=== PATIENT | female | born 1985 | race Caucasian/White ===

== ENCOUNTER 2017-12-22 14:51 | Inpatient (IN) | payer OTHER ==
[2017-12-22] MEDS: DEXTROSE 5%-0.45% NACL 1,000 ML IV (16:11)
[2017-12-22] MEDS ORDERED: ALBUTEROL/IPRATROPIUM (NEB) 3 ML AMP HHN (16:30)
[2017-12-22] MEDS ORDERED: MAGNESIUM HYDROXIDE 30ML CUP PO (16:30)
[2017-12-22] MEDS ORDERED: NACL 0.9% 3 ML SYG IV (16:30)
[2017-12-22] MEDS ORDERED: ACETAMINOPHEN 325 MG TAB PO (16:30)
[2017-12-22] MEDS: morphine 2 MG INJ IV (17:38)
[2017-12-22] MEDS: HYDROCODONE/APAP (5/325) TAB PO (19:52)
[2017-12-23] MEDS: DEXTROSE 5%-0.45% NACL 1,000 ML IV ×3 (02:22→21:12)
[2017-12-23] MEDS: morphine 2 MG INJ IV ×3 (03:20→12:34)
[2017-12-23 06:24] LABS: ADD MAN DIFF? NO
[2017-12-23 06:34] LABS: WHITE BLOOD COUNT 11.3 10^3/ul (4.8-10.8)
[2017-12-23 06:34] LABS: BASOPHILS % 0.3 % (0.0-2.0); EOSINOPHILS # 0.2 10^3/ul (0.0-0.5); EOSINOPHILS % 1.5 % (0.0-7.0); HEMATOCRIT 32.3 % (37.0-47.0); HEMOGLOBIN 10.4 g/dl (12.0-16.0); LYMPHOCYTES # 1.9 10^3/ul (0.8-2.9); MEAN CORPUSCULAR HGB CONC 32.2 g/dl (32.0-37.0); MEAN PLATELET VOLUME 9.2 fl (7.4-10.4); MONOCYTE # 1.1 10^3/ul (0.3-0.9); MONOCYTES % 9.6 % (0.0-11.0); NEUTROPHILS % 71.1 % (39.0-77.0); PLATELET COUNT 360 10^3/UL (140-415); RED BLOOD COUNT 3.59 10^6/ul (4.20-5.40); RED CELL DISTRIBUTION WIDTH 14.5 % (11.5-14.5)
[2017-12-23 07:11] LABS: ALANINE AMINOTRANSFERASE 27 IU/L (13-69); ALBUMIN 3.6 g/dl (3.3-4.9); ALBUMIN/GLOBULIN RATIO 1.16; ALKALINE PHOSPHATASE 68 IU/L (42-121); ANION GAP 15 (8-16); ASPARTATE AMINO TRANSFERASE 20 IU/L (15-46); BILIRUBIN,INDIRECT 0.2 mg/dl (0-1.1); BILIRUBIN,TOTAL 0.2 mg/dl (0.2-1.3); BLOOD UREA NITROGEN 7 mg/dl (7-20); CALCIUM 8.8 mg/dl (8.4-10.2); CARBON DIOXIDE 26 mmol/L (21-31); CHLORIDE 102 mmol/L (97-110); CREATININE 0.61 mg/dl (0.44-1.00); GLUCOSE 114 mg/dl (70-220); MAGNESIUM 1.8 mg/dl (1.7-2.5); POTASSIUM 4.1 mmol/L (3.5-5.1); SODIUM 139 mmol/L (135-144); TOTAL PROTEIN 6.7 g/dl (6.1-8.1)
[2017-12-23] MEDS: LORAZEPAM 0.5 MG TAB PO (09:40)
[2017-12-23 15:39] LABS: BARBITURATES Negative (NEGATIVE); BENZODIAZEPINES Negative (NEGATIVE); CANNABINOIDS Positive (NEGATIVE); COCAINE Negative (NEGATIVE)
[2017-12-23 15:47] LABS: AMPHETAMINE/METHAMPHETAMINE Positive (NEGATIVE); OPIATES Positive (NEGATIVE)
[2017-12-23] MEDS: HYDROCODONE/APAP (5/325) TAB PO (16:06)
[2017-12-23] MEDS: morphine LIQ (10 MG/5 ML) CUP PO (19:41)
[2017-12-24] MEDS: morphine LIQ (10 MG/5 ML) CUP PO ×3 (00:07→21:25)
[2017-12-24] MEDS: LORAZEPAM 0.5 MG TAB PO (00:29)
[2017-12-24] MEDS: HYDROCODONE/APAP (5/325) TAB PO ×3 (01:35→18:16)
[2017-12-24 06:23] LABS: ADD MAN DIFF? NO
[2017-12-24 06:32] LABS: WHITE BLOOD COUNT 13.3 10^3/ul (4.8-10.8)
[2017-12-24 06:32] LABS: BASOPHIL # 0.1 10^3/ul (0.0-0.1); BASOPHILS % 0.5 % (0.0-2.0); EOSINOPHILS # 0.3 10^3/ul (0.0-0.5); HEMATOCRIT 33.9 % (37.0-47.0); HEMOGLOBIN 10.8 g/dl (12.0-16.0); LYMPHOCYTES # 2.7 10^3/ul (0.8-2.9); LYMPHOCYTES % 20.2 % (15.0-51.0); MEAN CORPUSCULAR HEMOGLOBIN 28.2 pg (29.0-33.0); MEAN CORPUSCULAR HGB CONC 31.9 g/dl (32.0-37.0); MEAN CORPUSCULAR VOLUME 88.5 fl (82.0-101.0); MONOCYTE # 1.2 10^3/ul (0.3-0.9); MONOCYTES % 8.9 % (0.0-11.0); NEUTROPHILS % 67.8 % (39.0-77.0); PLATELET COUNT 405 10^3/UL (140-415); RED BLOOD COUNT 3.83 10^6/ul (4.20-5.40); RED CELL DISTRIBUTION WIDTH 14.6 % (11.5-14.5)
[2017-12-24 07:00] LABS: ANION GAP 13 (8-16); BLOOD UREA NITROGEN 9 mg/dl (7-20); CALCIUM 9.1 mg/dl (8.4-10.2); CARBON DIOXIDE 26 mmol/L (21-31); CHLORIDE 103 mmol/L (97-110); CREATININE 0.53 mg/dl (0.44-1.00); GLUCOSE 110 mg/dl (70-220); MAGNESIUM 1.9 mg/dl (1.7-2.5); PHOSPHORUS 3.8 mg/dl (2.5-4.9); POTASSIUM 4.2 mmol/L (3.5-5.1); SODIUM 138 mmol/L (135-144)
[2017-12-24] MEDS: DEXTROSE 5%-0.45% NACL 1,000 ML IV ×2 (08:11→18:11)
[2017-12-25] MEDS: DEXTROSE 5%-0.45% NACL 1,000 ML IV ×3 (00:46→11:49)
[2017-12-25] MEDS: morphine 2 MG INJ IV ×4 (01:19→13:57)
[2017-12-25 06:49] LABS: ADD MAN DIFF? NO
[2017-12-25 06:52] LABS: BASOPHIL # 0.1 10^3/ul (0.0-0.1); BASOPHILS % 0.4 % (0.0-2.0); EOSINOPHILS # 0.3 10^3/ul (0.0-0.5); EOSINOPHILS % 2.7 % (0.0-7.0); HEMATOCRIT 32.6 % (37.0-47.0); HEMOGLOBIN 10.3 g/dl (12.0-16.0); LYMPHOCYTES # 2.3 10^3/ul (0.8-2.9); LYMPHOCYTES % 19.9 % (15.0-51.0); MEAN CORPUSCULAR HEMOGLOBIN 28.2 pg (29.0-33.0); MEAN CORPUSCULAR HGB CONC 31.6 g/dl (32.0-37.0); MEAN CORPUSCULAR VOLUME 89.3 fl (82.0-101.0); MEAN PLATELET VOLUME 8.6 fl (7.4-10.4); MONOCYTES % 8.8 % (0.0-11.0); NEUTROPHIL # 7.9 10^3/ul (1.6-7.5); NEUTROPHILS % 67.6 % (39.0-77.0); PLATELET COUNT 397 10^3/UL (140-415); RED BLOOD COUNT 3.65 10^6/ul (4.20-5.40); RED CELL DISTRIBUTION WIDTH 14.6 % (11.5-14.5)
[2017-12-25 06:52] LABS: WHITE BLOOD COUNT 11.6 10^3/ul (4.8-10.8)
[2017-12-25 07:20] LABS: ANION GAP 12 (8-16); BLOOD UREA NITROGEN 12 mg/dl (7-20); CALCIUM 8.9 mg/dl (8.4-10.2); CARBON DIOXIDE 28 mmol/L (21-31); CHLORIDE 102 mmol/L (97-110); CREATININE 0.64 mg/dl (0.44-1.00); GLUCOSE 100 mg/dl (70-220); MAGNESIUM 1.9 mg/dl (1.7-2.5); PHOSPHORUS 4.8 mg/dl (2.5-4.9); POTASSIUM 4.3 mmol/L (3.5-5.1); SODIUM 138 mmol/L (135-144)
[2017-12-25 13:50] LABS: INR 0.93; PROTIME 12.6 Sec (11.9-14.9)
[2017-12-25 13:58] LABS: PARTIAL THROMBOPLASTIN TIME 28.4 Sec (25.0-35.0)
[2017-12-25] MEDS ORDERED: MIDAZOLAM 1 MG/ML 2 ML INJ ×2 (15:39→16:01)
[2017-12-25] MEDS ORDERED: CEFAZOLIN 1 GM INJ (16:00)
[2017-12-25] MEDS ORDERED: PROPOFOL 20 ML (16:00)
[2017-12-25] MEDS ORDERED: NEOSTIGMINE 3 MG/3 ML SYRINGE (16:00)
[2017-12-25] MEDS ORDERED: GLYCOPYRROLATE 0.4 MG INJ (16:00)
[2017-12-25] MEDS ORDERED: ROCURONIUM 50 MG INJ ×2 (16:00→17:52)
[2017-12-25] MEDS ORDERED: FENTAnyl 50 MCG/ML VIAL (16:01)
[2017-12-25] MEDS ORDERED: BUPIVACAINE 0.75%/DEXT (SPINAL) 2 ML INJ (16:01)
[2017-12-25] MEDS ORDERED: ONDANSETRON 4 MG INJ (16:01)
[2017-12-25] MEDS ORDERED: DEXAMETHASONE 4 MG/ML 1 ML INJ (16:01)
[2017-12-25] MEDS ORDERED: morphine SULFATE/PF (10 MG/10 ML) INJ (16:02)
[2017-12-25] MEDS ORDERED: EPINEPHrine 1 MG INJ (16:02)
[2017-12-25] MEDS ORDERED: PHENYLephrine (100 MCG/ML) 5ML SYG (16:29)
[2017-12-25] MEDS: POLYMYXIN/BACITRACIN 1L IRRIG (17:09)
[2017-12-25] MEDS ORDERED: MEPERIDINE 25 MG INJ IV (18:30)
[2017-12-25] MEDS ORDERED: OXYCODONE/ACETAMINOPHEN (5/325) TAB PO (18:30)
[2017-12-25] MEDS ORDERED: TRIMETHOBENZAMIDE 100 MG/ML VIAL IM (18:30)
[2017-12-25] MEDS ORDERED: NALOXONE (0.4 MG/ML) INJ IV (18:30)
[2017-12-25] MEDS ORDERED: ALBUTEROL 0.083% (NEB) 2.5 MG/3 ML AMP HHN (18:30)
[2017-12-25] MEDS ORDERED: ONDANSETRON 4 MG INJ IV (18:30)
[2017-12-25] MEDS ORDERED: LABETALOL HCL 20MG INJ IV (18:30)
[2017-12-25] MEDS ORDERED: HYDROmorphONE 1 MG/5 ML IV SYRINGE IV ×2 (18:30)
[2017-12-25] MEDS ORDERED: EPHEDrine SULFATE 50 MG/5 ML SYG IV (18:30)
[2017-12-25] MEDS ORDERED: hydrALAzine 20 MG INJ IV (18:30)
[2017-12-25] MEDS ORDERED: FENTAnyl 50 MCG/ML VIAL IV (18:30)
[2017-12-25] MEDS ORDERED: IPRATROPIUM (NEB) 0.5 MG/2.5 ML AMP HHN (18:30)
[2017-12-25] MEDS ORDERED: METOCLOPRAMIDE 10 MG INJ (20:24)
[2017-12-25] MEDS: HYDROmorphONE 1 MG/5 ML IV SYRINGE IV (20:57)
[2017-12-25] MEDS: DIPHENHYDRAMINE 50 MG INJ IV (21:00)
[2017-12-25 21:08] LABS: ADD MAN DIFF? NO
[2017-12-25] MEDS: FENTAnyl 50 MCG/ML VIAL IV ×2 (21:09→21:31)
[2017-12-25 21:10] LABS: WHITE BLOOD COUNT 11.5 10^3/ul (4.8-10.8)
[2017-12-25 21:10] LABS: BASOPHILS % 0.3 % (0.0-2.0); EOSINOPHILS # 0.2 10^3/ul (0.0-0.5); EOSINOPHILS % 1.9 % (0.0-7.0); HEMATOCRIT 28.3 % (37.0-47.0); HEMOGLOBIN 9.3 g/dl (12.0-16.0); LYMPHOCYTES # 2.7 10^3/ul (0.8-2.9); LYMPHOCYTES % 23.7 % (15.0-51.0); MEAN CORPUSCULAR HGB CONC 32.9 g/dl (32.0-37.0); MEAN CORPUSCULAR VOLUME 88.2 fl (82.0-101.0); MEAN PLATELET VOLUME 8.5 fl (7.4-10.4); MONOCYTE # 0.6 10^3/ul (0.3-0.9); MONOCYTES % 5.6 % (0.0-11.0); NEUTROPHIL # 7.8 10^3/ul (1.6-7.5); NEUTROPHILS % 67.6 % (39.0-77.0); PLATELET COUNT 356 10^3/UL (140-415); RED BLOOD COUNT 3.21 10^6/ul (4.20-5.40); RED CELL DISTRIBUTION WIDTH 14.3 % (11.5-14.5)
[2017-12-25 21:29] LABS: ANION GAP 9 (8-16); BLOOD UREA NITROGEN 10 mg/dl (7-20); CALCIUM 8.7 mg/dl (8.4-10.2); CARBON DIOXIDE 24 mmol/L (21-31); CHLORIDE 106 mmol/L (97-110); CREATININE 0.57 mg/dl (0.44-1.00); GLUCOSE 111 mg/dl (70-220); POTASSIUM 4.4 mmol/L (3.5-5.1); SODIUM 135 mmol/L (135-144)
[2017-12-25] MEDS: MIDAZOLAM 1 MG/ML 2 ML INJ IV (21:34)
[2017-12-25] MEDS: OXYCODONE/ACETAMINOPHEN (5/325) TAB PO (22:32)
[2017-12-25] MEDS: CEFAZOLIN 1 GM/50 ML (PMX) 50 ML IVPB (22:39)
[2017-12-25] MEDS: D5W-0.45 NACL + KCL 20 MEQ 1,000 ML IV (23:32)
[2017-12-26] MEDS: morphine LIQ (10 MG/5 ML) CUP PO ×2 (01:05→23:39)
[2017-12-26] MEDS: morphine 2 MG INJ IV ×3 (04:22→14:49)
[2017-12-26] MEDS: HYDROCODONE/APAP (5/325) TAB PO ×2 (05:24→09:41)
[2017-12-26] MEDS: CEFAZOLIN 1 GM/50 ML (PMX) 50 ML IVPB ×2 (05:24→14:03)
[2017-12-26] MEDS: D5W-0.45 NACL + KCL 20 MEQ 1,000 ML IV ×3 (05:25→19:54)
[2017-12-26 05:33] LABS: ADD MAN DIFF? NO
[2017-12-26 05:44] LABS: ABNORMAL IP MESSAGE 1; BASOPHILS % 0.2 % (0.0-2.0); HEMATOCRIT 25.6 % (37.0-47.0); HEMOGLOBIN 8.4 g/dl (12.0-16.0); LYMPHOCYTES # 0.5 10^3/ul (0.8-2.9); LYMPHOCYTES % 3.8 % (15.0-51.0); MEAN CORPUSCULAR HEMOGLOBIN 29.2 pg (29.0-33.0); MEAN CORPUSCULAR HGB CONC 32.8 g/dl (32.0-37.0); MEAN CORPUSCULAR VOLUME 88.9 fl (82.0-101.0); MEAN PLATELET VOLUME 8.7 fl (7.4-10.4); MONOCYTE # 0.7 10^3/ul (0.3-0.9); NEUTROPHIL # 10.8 10^3/ul (1.6-7.5); NEUTROPHILS % 89.5 % (39.0-77.0); PLATELET COUNT 347 10^3/UL (140-415); RED BLOOD COUNT 2.88 10^6/ul (4.20-5.40)
[2017-12-26 05:44] LABS: WHITE BLOOD COUNT 12.1 10^3/ul (4.8-10.8)
[2017-12-26 06:00] LABS: POSITIVE DIFF @See below
[2017-12-26 06:12] LABS: ANION GAP 12 (8-16); BLOOD UREA NITROGEN 8 mg/dl (7-20); CALCIUM 8.5 mg/dl (8.4-10.2); CARBON DIOXIDE 24 mmol/L (21-31); CHLORIDE 105 mmol/L (97-110); CREATININE 0.58 mg/dl (0.44-1.00); GLUCOSE 147 mg/dl (70-220); MAGNESIUM 1.7 mg/dl (1.7-2.5); POTASSIUM 4.6 mmol/L (3.5-5.1); SODIUM 136 mmol/L (135-144)
[2017-12-26] MEDS ORDERED: oxyCODONE 5 MG TAB PO (10:30)
[2017-12-26] MEDS: OXYCODONE/ACETAMINOPHEN (10/325) TAB PO ×3 (12:13→20:45)
[2017-12-26] MEDS: HYDROmorphONE 1 MG/ML SYG IV ×2 (15:51→20:00)
[2017-12-26] MEDS: ZOLPIDEM 5 MG TAB PO (20:45)
[2017-12-26] MEDS: LORAZEPAM 0.5 MG TAB PO (22:58)
[2017-12-27] MEDS: HYDROmorphONE 1 MG/ML SYG IV ×6 (00:01→22:08)
[2017-12-27 05:07] LABS: ADD MAN DIFF? NO
[2017-12-27 05:28] LABS: BASOPHILS % 0.4 % (0.0-2.0); EOSINOPHILS # 0.1 10^3/ul (0.0-0.5); EOSINOPHILS % 1.1 % (0.0-7.0); HEMATOCRIT 23.5 % (37.0-47.0); HEMOGLOBIN 7.4 g/dl (12.0-16.0); LYMPHOCYTES # 1.6 10^3/ul (0.8-2.9); LYMPHOCYTES % 14.3 % (15.0-51.0); MEAN CORPUSCULAR HGB CONC 31.5 g/dl (32.0-37.0); MEAN PLATELET VOLUME 8.8 fl (7.4-10.4); MONOCYTE # 0.9 10^3/ul (0.3-0.9); MONOCYTES % 7.8 % (0.0-11.0); NEUTROPHIL # 8.3 10^3/ul (1.6-7.5); NEUTROPHILS % 75.9 % (39.0-77.0); PLATELET COUNT 329 10^3/UL (140-415); RED BLOOD COUNT 2.64 10^6/ul (4.20-5.40); RED CELL DISTRIBUTION WIDTH 14.5 % (11.5-14.5)
[2017-12-27 05:28] LABS: WHITE BLOOD COUNT 10.9 10^3/ul (4.8-10.8)
[2017-12-27 05:43] LABS: ANION GAP 9 (8-16); BLOOD UREA NITROGEN 3 mg/dl (7-20); CALCIUM 8.2 mg/dl (8.4-10.2); CARBON DIOXIDE 28 mmol/L (21-31); CHLORIDE 103 mmol/L (97-110); CREATININE 0.51 mg/dl (0.44-1.00); GLUCOSE 113 mg/dl (70-220); MAGNESIUM 1.8 mg/dl (1.7-2.5); PHOSPHORUS 3.2 mg/dl (2.5-4.9); POTASSIUM 3.9 mmol/L (3.5-5.1); SODIUM 136 mmol/L (135-144)
[2017-12-27] MEDS: LORAZEPAM 0.5 MG TAB PO ×2 (05:57→09:57)
[2017-12-27] MEDS: OXYCODONE/ACETAMINOPHEN (10/325) TAB PO ×3 (05:57→17:20)
[2017-12-27] MEDS: D5W-0.45 NACL + KCL 20 MEQ 1,000 ML IV (06:03)
[2017-12-27] MEDS: NAPROXEN 500 MG TAB PO ×2 (11:00→21:29)
[2017-12-27] MEDS: GABAPENTIN 300 MG CAP PO ×2 (13:17→21:28)
[2017-12-27 21:18] LABS: IMMEDIATE SPIN CROSSMATCH 1 3
[2017-12-28] MEDS: OXYCODONE/ACETAMINOPHEN (10/325) TAB PO ×5 (02:11→18:51)
[2017-12-28] MEDS: HYDROmorphONE 1 MG/ML SYG IV ×5 (03:14→19:59)
[2017-12-28 05:49] LABS: ADD MAN DIFF? NO
[2017-12-28 05:53] LABS: WHITE BLOOD COUNT 9.4 10^3/ul (4.8-10.8)
[2017-12-28 05:53] LABS: BASOPHIL # 0.1 10^3/ul (0.0-0.1); BASOPHILS % 0.5 % (0.0-2.0); EOSINOPHILS # 0.3 10^3/ul (0.0-0.5); EOSINOPHILS % 3.3 % (0.0-7.0); HEMATOCRIT 32.9 % (37.0-47.0); HEMOGLOBIN 10.8 g/dl (12.0-16.0); LYMPHOCYTES # 1.8 10^3/ul (0.8-2.9); LYMPHOCYTES % 19.5 % (15.0-51.0); MEAN CORPUSCULAR HEMOGLOBIN 29.2 pg (29.0-33.0); MEAN CORPUSCULAR HGB CONC 32.8 g/dl (32.0-37.0); MEAN CORPUSCULAR VOLUME 88.9 fl (82.0-101.0); MEAN PLATELET VOLUME 8.9 fl (7.4-10.4); MONOCYTE # 0.9 10^3/ul (0.3-0.9); MONOCYTES % 9.3 % (0.0-11.0); NEUTROPHIL # 6.2 10^3/ul (1.6-7.5); NEUTROPHILS % 65.9 % (39.0-77.0); PLATELET COUNT 356 10^3/UL (140-415)
[2017-12-28 06:30] LABS: ANION GAP 8 (8-16); BLOOD UREA NITROGEN 7 mg/dl (7-20); CALCIUM 8.7 mg/dl (8.4-10.2); CARBON DIOXIDE 30 mmol/L (21-31); CHLORIDE 105 mmol/L (97-110); GLUCOSE 121 mg/dl (70-220); MAGNESIUM 1.9 mg/dl (1.7-2.5); PHOSPHORUS 4.5 mg/dl (2.5-4.9); POTASSIUM 3.9 mmol/L (3.5-5.1); SODIUM 139 mmol/L (135-144)
[2017-12-28] MEDS: NAPROXEN 500 MG TAB PO ×2 (07:29→21:10)
[2017-12-28] MEDS: GABAPENTIN 300 MG CAP PO ×3 (07:29→21:10)
[2017-12-28] MEDS: BISACODYL (EC) 5 MG TAB PO (10:50)
[2017-12-28] MEDS: DOCUSATE SODIUM 100 MG CAP PO (10:50)
[2017-12-28] MEDS: morphine LIQ (10 MG/5 ML) CUP PO (18:17)
[2017-12-28] MEDS: LORAZEPAM 0.5 MG TAB PO ×2 (21:14→22:02)
[2017-12-29] MEDS: HYDROmorphONE 1 MG/ML SYG IV ×2 (00:13→06:09)
[2017-12-29] MEDS: ONDANSETRON 4 MG INJ IV (01:26)
[2017-12-29] MEDS: OXYCODONE/ACETAMINOPHEN (10/325) TAB PO ×3 (03:49→17:52)
[2017-12-29 05:38] LABS: ADD MAN DIFF? NO
[2017-12-29 05:45] LABS: BASOPHIL # 0.1 10^3/ul (0.0-0.1); BASOPHILS % 0.6 % (0.0-2.0); EOSINOPHILS # 0.4 10^3/ul (0.0-0.5); EOSINOPHILS % 3.9 % (0.0-7.0); HEMATOCRIT 33.1 % (37.0-47.0); HEMOGLOBIN 10.5 g/dl (12.0-16.0); LYMPHOCYTES # 2.3 10^3/ul (0.8-2.9); LYMPHOCYTES % 20.9 % (15.0-51.0); MEAN CORPUSCULAR HEMOGLOBIN 28.8 pg (29.0-33.0); MEAN CORPUSCULAR HGB CONC 31.7 g/dl (32.0-37.0); MEAN CORPUSCULAR VOLUME 90.9 fl (82.0-101.0); MEAN PLATELET VOLUME 8.7 fl (7.4-10.4); MONOCYTE # 0.8 10^3/ul (0.3-0.9); MONOCYTES % 7.7 % (0.0-11.0); NEUTROPHILS % 64.9 % (39.0-77.0); PLATELET COUNT 448 10^3/UL (140-415); RED BLOOD COUNT 3.64 10^6/ul (4.20-5.40)
[2017-12-29 05:45] LABS: WHITE BLOOD COUNT 10.8 10^3/ul (4.8-10.8)
[2017-12-29] MEDS: GABAPENTIN 300 MG CAP PO ×2 (07:56→20:42)
[2017-12-29] MEDS: NAPROXEN 500 MG TAB PO (07:56)
[2017-12-29] MEDS: traMADol 50 MG TAB PO ×2 (14:21→20:42)
[2017-12-29] MEDS: ZOLPIDEM 5 MG TAB PO (20:42)
[2017-12-30] MEDS: OXYCODONE/ACETAMINOPHEN (10/325) TAB PO ×5 (03:34→23:47)
[2017-12-30] MEDS: traMADol 50 MG TAB PO ×3 (05:21→20:15)
[2017-12-30 06:08] LABS: ADD MAN DIFF? NO
[2017-12-30 06:10] LABS: WHITE BLOOD COUNT 10.7 10^3/ul (4.8-10.8)
[2017-12-30 06:10] LABS: BASOPHIL # 0.1 10^3/ul (0.0-0.1); BASOPHILS % 0.5 % (0.0-2.0); EOSINOPHILS # 0.4 10^3/ul (0.0-0.5); EOSINOPHILS % 4.1 % (0.0-7.0); HEMOGLOBIN 10.2 g/dl (12.0-16.0); LYMPHOCYTES # 2.4 10^3/ul (0.8-2.9); LYMPHOCYTES % 22.9 % (15.0-51.0); MEAN CORPUSCULAR HEMOGLOBIN 28.3 pg (29.0-33.0); MEAN CORPUSCULAR HGB CONC 31.9 g/dl (32.0-37.0); MEAN CORPUSCULAR VOLUME 88.6 fl (82.0-101.0); MEAN PLATELET VOLUME 8.5 fl (7.4-10.4); MONOCYTE # 0.8 10^3/ul (0.3-0.9); MONOCYTES % 7.3 % (0.0-11.0); NEUTROPHIL # 6.8 10^3/ul (1.6-7.5); NEUTROPHILS % 63.4 % (39.0-77.0); PLATELET COUNT 486 10^3/UL (140-415); RED BLOOD COUNT 3.61 10^6/ul (4.20-5.40); RED CELL DISTRIBUTION WIDTH 14.2 % (11.5-14.5)
[2017-12-30] MEDS: LORAZEPAM 0.5 MG TAB PO (16:00)
[2017-12-30] MEDS: GABAPENTIN 300 MG CAP PO (20:15)
[2017-12-30] MEDS: DOCUSATE SODIUM 100 MG CAP PO (20:17)
[2017-12-30] MEDS: ZOLPIDEM 5 MG TAB PO (21:08)
[2017-12-31] MEDS: OXYCODONE/ACETAMINOPHEN (10/325) TAB PO ×2 (04:14→09:20)
[2017-12-31 05:01] LABS: ADD MAN DIFF? NO
[2017-12-31 05:08] LABS: WHITE BLOOD COUNT 10.3 10^3/ul (4.8-10.8)
[2017-12-31 05:08] LABS: BASOPHIL # 0.1 10^3/ul (0.0-0.1); BASOPHILS % 0.5 % (0.0-2.0); EOSINOPHILS # 0.4 10^3/ul (0.0-0.5); EOSINOPHILS % 3.5 % (0.0-7.0); HEMATOCRIT 32.3 % (37.0-47.0); HEMOGLOBIN 10.2 g/dl (12.0-16.0); LYMPHOCYTES # 2.6 10^3/ul (0.8-2.9); LYMPHOCYTES % 25.1 % (15.0-51.0); MEAN CORPUSCULAR HEMOGLOBIN 27.9 pg (29.0-33.0); MEAN CORPUSCULAR HGB CONC 31.6 g/dl (32.0-37.0); MEAN CORPUSCULAR VOLUME 88.5 fl (82.0-101.0); MEAN PLATELET VOLUME 8.4 fl (7.4-10.4); MONOCYTE # 0.7 10^3/ul (0.3-0.9); MONOCYTES % 6.9 % (0.0-11.0); NEUTROPHIL # 6.4 10^3/ul (1.6-7.5); NEUTROPHILS % 62.3 % (39.0-77.0); PLATELET COUNT 558 10^3/UL (140-415); RED BLOOD COUNT 3.65 10^6/ul (4.20-5.40)
[2017-12-31] MEDS: traMADol 50 MG TAB PO (07:05)
== END 2017-12-31 11:45 | disposition home health service (06) | DRG 481 ==
LOC: MS1 12-25 22:55 → MS2 14:51
PROC: 0QS804Z Reposition Right Femoral Shaft with Internal Fixation Device, Open Approach (ICD-10-PCS; principal; 2017-12-25 15:30)
DX: S72.351A Displaced comminuted fracture of shaft of right femur, initial encounter for closed fracture (principal); D62 Acute posthemorrhagic anemia; S72.321A Displaced transverse fracture of shaft of right femur, initial encounter for closed fracture; F41.9 Anxiety disorder, unspecified; J45.909 Unspecified asthma, uncomplicated; V00.131A Fall from skateboard, initial encounter; Y92.89 Other specified places as the place of occurrence of the external cause
CPT/HCPCS: 36430; 73550; 73700; 80048; 80053; 80307; 83735; 84100; 85025; 85610; 85730; 86850; 86900; 86901; 86920; 93306; 97116; 97163; 97530

== ENCOUNTER 2018-08-21 15:33 | Inpatient (IN) | payer OTHER ==
[2018-08-21] MEDS: HYDROmorphONE 1 MG/ML SYG IV (16:16)
[2018-08-21] MEDS: ONDANSETRON 4 MG INJ IV ×2 (16:16→20:00)
[2018-08-21 18:14] LABS: ADD MAN DIFF? NO
[2018-08-21 18:20] LABS: WHITE BLOOD COUNT 11.3 10^3/ul (4.8-10.8)
[2018-08-21 18:20] LABS: BASOPHILS % 0.4 % (0.0-2.0); EOSINOPHILS % 0.4 % (0.0-7.0); HEMATOCRIT 37.1 % (37.0-47.0); HEMOGLOBIN 11.6 g/dl (12.0-16.0); LYMPHOCYTES # 1.7 10^3/ul (0.8-2.9); LYMPHOCYTES % 14.8 % (15.0-51.0); MEAN CORPUSCULAR HEMOGLOBIN 28.8 pg (29.0-33.0); MEAN CORPUSCULAR HGB CONC 31.3 g/dl (32.0-37.0); MEAN CORPUSCULAR VOLUME 92.1 fl (82.0-101.0); MEAN PLATELET VOLUME 8.4 fl (7.4-10.4); MONOCYTE # 0.6 10^3/ul (0.3-0.9); MONOCYTES % 5.2 % (0.0-11.0); NEUTROPHIL # 8.9 10^3/ul (1.6-7.5); NEUTROPHILS % 78.7 % (39.0-77.0); PLATELET COUNT 412 10^3/UL (140-415); RED BLOOD COUNT 4.03 10^6/ul (4.20-5.40); RED CELL DISTRIBUTION WIDTH 14.1 % (11.5-14.5)
[2018-08-21 18:38] LABS: INR 0.86; PROTIME 11.8 Sec (11.9-14.9); PT RATIO 0.9
[2018-08-21 18:40] LABS: PARTIAL THROMBOPLASTIN TIME 29.1 Sec (23.0-35.0)
[2018-08-21 18:46] LABS: ANION GAP 10 (5-13); BLOOD UREA NITROGEN 11 mg/dl (7-20); CALCIUM 9.3 mg/dl (8.4-10.2); CARBON DIOXIDE 24 mmol/L (21-31); CHLORIDE 106 mmol/L (97-110); CREATININE 0.66 mg/dl (0.44-1.00); Estimated GFR > 60 mL/min (>60); GLUCOSE 94 mg/dl (70-220); POTASSIUM 4.4 mmol/L (3.5-5.1); SODIUM 140 mmol/L (135-144)
[2018-08-21] MEDS ORDERED: ACETAMINOPHEN 325 MG TAB PO ×2 (19:00→19:30)
[2018-08-21] MEDS ORDERED: ONDANSETRON 4 MG INJ IV (19:00)
[2018-08-21] MEDS ORDERED: hydrALAzine 20 MG INJ IV (19:30)
[2018-08-21] MEDS ORDERED: NACL 0.9% 3 ML SYG IV (19:30)
[2018-08-21] MEDS ORDERED: NITROGLYCERIN (SL) 0.4 MG TAB SL (19:30)
[2018-08-21] MEDS ORDERED: DOCUSATE SODIUM 100 MG CAP PO (19:30)
[2018-08-21] MEDS ORDERED: MAGNESIUM HYDROXIDE 30ML CUP PO (19:30)
[2018-08-21] MEDS ORDERED: morphine 2 MG INJ IV (19:30)
[2018-08-21] MEDS ORDERED: ALBUTEROL/IPRATROPIUM (NEB) 3 ML AMP HHN (19:30)
[2018-08-21 19:59] LABS: FREE T4 (FREE THYROXINE) 0.82 ng/dl (0.79-2.35)
[2018-08-21] MEDS: HYDROmorphONE 2 MG/ML SYG IV (20:02)
[2018-08-21] MEDS: HYDROCODONE/APAP (5/325) TAB PO (21:17)
[2018-08-21] MEDS: SOD CHLORIDE 0.9% 1,000 ML IV (21:18)
[2018-08-21] MEDS: HEPARIN 5,000 UNIT/1 ML VIAL SC (21:22)
[2018-08-22] MEDS: HYDROCODONE/APAP (5/325) TAB PO ×2 (03:17→15:26)
[2018-08-22] MEDS ORDERED: morphine 4 MG/ML VIAL IV (04:00)
[2018-08-22 05:22] LABS: ADD MAN DIFF? NO
[2018-08-22 05:41] LABS: WHITE BLOOD COUNT 10.4 10^3/ul (4.8-10.8)
[2018-08-22 05:41] LABS: BASOPHILS % 0.4 % (0.0-2.0); EOSINOPHILS # 0.1 10^3/ul (0.0-0.5); EOSINOPHILS % 0.9 % (0.0-7.0); HEMATOCRIT 34.1 % (37.0-47.0); HEMOGLOBIN 10.9 g/dl (12.0-16.0); LYMPHOCYTES # 2.1 10^3/ul (0.8-2.9); LYMPHOCYTES % 19.6 % (15.0-51.0); MEAN CORPUSCULAR HEMOGLOBIN 29.3 pg (29.0-33.0); MEAN CORPUSCULAR VOLUME 91.7 fl (82.0-101.0); MEAN PLATELET VOLUME 8.9 fl (7.4-10.4); NEUTROPHIL # 7.2 10^3/ul (1.6-7.5); NEUTROPHILS % 68.6 % (39.0-77.0); PLATELET COUNT 364 10^3/UL (140-415); RED BLOOD COUNT 3.72 10^6/ul (4.20-5.40); RED CELL DISTRIBUTION WIDTH 14.3 % (11.5-14.5)
[2018-08-22 05:50] LABS: HEMOGLOBIN A1C 5.3 % (0-5.9)
[2018-08-22 05:55] LABS: ANION GAP 5 (5-13); BLOOD UREA NITROGEN 9 mg/dl (7-20); CALCIUM 8.5 mg/dl (8.4-10.2); CARBON DIOXIDE 28 mmol/L (21-31); CHLORIDE 103 mmol/L (97-110); CREATININE 0.61 mg/dl (0.44-1.00); Estimated GFR > 60 mL/min (>60); GLUCOSE 108 mg/dl (70-220); MAGNESIUM 1.7 mg/dl (1.7-2.5); POTASSIUM 3.5 mmol/L (3.5-5.1); SODIUM 136 mmol/L (135-144)
[2018-08-22 06:08] LABS: CHOLESTEROL 114 mg/dl (100-200)
[2018-08-22 06:08] LABS: CHOL/HDL RATIO 2.4 RATIO; HDL CHOLESTEROL 46 mg/dl (34-82); LDL CHOLESTEROL,CALCULATED 35 mg/dl; TRIGLYCERIDES 164 mg/dl (0-149)
[2018-08-22] MEDS: HYDROmorphONE 1 MG/ML SYG IV (07:26)
[2018-08-22] MEDS: DIPHENHYDRAMINE 25 MG CAP PO (07:30)
[2018-08-22] MEDS: HEPARIN 5,000 UNIT/1 ML VIAL SC ×2 (09:13→20:29)
[2018-08-22] MEDS: DEXTROSE 5%-0.45% NACL 1,000 ML IV ×2 (12:00→20:31)
[2018-08-22] MEDS: HYDROmorphONE 0.5 MG/0.5 ML SYG IV (18:37)
[2018-08-23] MEDS: HYDROCODONE/APAP (5/325) TAB PO ×3 (02:01→20:49)
[2018-08-23 05:18] LABS: ADD MAN DIFF? NO
[2018-08-23 05:24] LABS: WHITE BLOOD COUNT 9.3 10^3/ul (4.8-10.8)
[2018-08-23 05:24] LABS: BASOPHILS % 0.4 % (0.0-2.0); EOSINOPHILS # 0.2 10^3/ul (0.0-0.5); EOSINOPHILS % 2.3 % (0.0-7.0); HEMATOCRIT 37.3 % (37.0-47.0); HEMOGLOBIN 11.7 g/dl (12.0-16.0); LYMPHOCYTES # 2.4 10^3/ul (0.8-2.9); LYMPHOCYTES % 25.6 % (15.0-51.0); MEAN CORPUSCULAR HEMOGLOBIN 28.5 pg (29.0-33.0); MEAN CORPUSCULAR HGB CONC 31.4 g/dl (32.0-37.0); MEAN CORPUSCULAR VOLUME 90.8 fl (82.0-101.0); MEAN PLATELET VOLUME 8.6 fl (7.4-10.4); MONOCYTE # 0.9 10^3/ul (0.3-0.9); MONOCYTES % 9.8 % (0.0-11.0); NEUTROPHIL # 5.7 10^3/ul (1.6-7.5); NEUTROPHILS % 61.5 % (39.0-77.0); PLATELET COUNT 385 10^3/UL (140-415); RED BLOOD COUNT 4.11 10^6/ul (4.20-5.40); RED CELL DISTRIBUTION WIDTH 14.3 % (11.5-14.5)
[2018-08-23 05:39] LABS: MAGNESIUM 1.8 mg/dl (1.7-2.5)
[2018-08-23 05:39] LABS: PHOSPHORUS 3.8 mg/dl (2.5-4.9)
[2018-08-23 05:43] LABS: ANION GAP 12 (5-13); BLOOD UREA NITROGEN 11 mg/dl (7-20); CALCIUM 8.9 mg/dl (8.4-10.2); CARBON DIOXIDE 27 mmol/L (21-31); CHLORIDE 100 mmol/L (97-110); CREATININE 0.71 mg/dl (0.44-1.00); Estimated GFR > 60 mL/min (>60); GLUCOSE 95 mg/dl (70-220); POTASSIUM 4.2 mmol/L (3.5-5.1); SODIUM 139 mmol/L (135-144)
[2018-08-23] MEDS: DEXTROSE 5%-0.45% NACL 1,000 ML IV ×2 (08:00→18:00)
[2018-08-23] MEDS: HYDROmorphONE 0.5 MG/0.5 ML SYG IV ×4 (08:22→22:53)
[2018-08-23] MEDS: HEPARIN 5,000 UNIT/1 ML VIAL SC ×2 (08:23→20:50)
[2018-08-23] MEDS: LORAZEPAM 2 MG INJ IV ×2 (11:01→17:54)
[2018-08-24 02:40] LABS: ADD MAN DIFF? NO
[2018-08-24 02:46] LABS: BASOPHIL # 0.1 10^3/ul (0.0-0.1); BASOPHILS % 0.6 % (0.0-2.0); EOSINOPHILS # 0.3 10^3/ul (0.0-0.5); EOSINOPHILS % 3.3 % (0.0-7.0); HEMATOCRIT 38.5 % (37.0-47.0); HEMOGLOBIN 12.2 g/dl (12.0-16.0); LYMPHOCYTES # 2.9 10^3/ul (0.8-2.9); MEAN CORPUSCULAR HEMOGLOBIN 28.6 pg (29.0-33.0); MEAN CORPUSCULAR HGB CONC 31.7 g/dl (32.0-37.0); MEAN CORPUSCULAR VOLUME 90.2 fl (82.0-101.0); MEAN PLATELET VOLUME 8.7 fl (7.4-10.4); NEUTROPHIL # 4.5 10^3/ul (1.6-7.5); NEUTROPHILS % 51.5 % (39.0-77.0); PLATELET COUNT 413 10^3/UL (140-415); RED BLOOD COUNT 4.27 10^6/ul (4.20-5.40); RED CELL DISTRIBUTION WIDTH 14.2 % (11.5-14.5)
[2018-08-24 02:46] LABS: WHITE BLOOD COUNT 8.7 10^3/ul (4.8-10.8)
[2018-08-24 03:11] LABS: ANION GAP 9 (5-13); BLOOD UREA NITROGEN 10 mg/dl (7-20); CALCIUM 9.2 mg/dl (8.4-10.2); CARBON DIOXIDE 25 mmol/L (21-31); CHLORIDE 106 mmol/L (97-110); CREATININE 0.58 mg/dl (0.44-1.00); Estimated GFR > 60 mL/min (>60); GLUCOSE 103 mg/dl (70-220); POTASSIUM 3.9 mmol/L (3.5-5.1); SODIUM 140 mmol/L (135-144)
[2018-08-24] MEDS: HYDROCODONE/APAP (5/325) TAB PO ×2 (03:30→22:03)
[2018-08-24] MEDS: HYDROmorphONE 0.5 MG/0.5 ML SYG IV ×2 (06:20→21:10)
[2018-08-24] MEDS: DEXTROSE 5%-0.45% NACL 1,000 ML IV ×3 (06:22→23:52)
[2018-08-24] MEDS ORDERED: LIDOCAINE 2% (SDV) 5 ML INJ (07:00)
[2018-08-24] MEDS ORDERED: DESFLURANE 15 MIN (07:00)
[2018-08-24] MEDS ORDERED: PROPOFOL 200 MG INJ (07:00)
[2018-08-24] MEDS: HEPARIN 5,000 UNIT/1 ML VIAL SC ×2 (07:32→21:11)
[2018-08-24] MEDS: LORAZEPAM 2 MG INJ IV ×2 (08:31→13:11)
[2018-08-24] MEDS ORDERED: MIDAZOLAM 1 MG/ML 2 ML INJ (15:48)
[2018-08-24] MEDS ORDERED: morphine SULFATE/PF (10 MG/10 ML) INJ (15:49)
[2018-08-24] MEDS ORDERED: PHENYLephrine (100 MCG/ML) 5ML SYG ×3 (15:57→16:12)
[2018-08-24] MEDS ORDERED: PHENYLephrine 10 MG INJ (16:15)
[2018-08-24] MEDS: POLYMYXIN/BACITRACIN 1L IRRIG (16:58)
[2018-08-24] MEDS ORDERED: SUCCINYLCHOLINE CHLORIDE 100 MG/5 ML SYG IV (17:25)
[2018-08-24] MEDS ORDERED: ROCURONIUM 50 MG INJ (17:25)
[2018-08-24] MEDS ORDERED: CEFAZOLIN 1 GM INJ (17:25)
[2018-08-24] MEDS ORDERED: SUGAMMADEX SODIUM 200 MG/2 ML VIAL IV (17:25)
[2018-08-24] MEDS ORDERED: ETOMIDATE 20 MG INJ (17:25)
[2018-08-24] MEDS ORDERED: NACL 0.9% 3 ML SYG IV (18:30)
[2018-08-24] MEDS ORDERED: morphine 4 MG/ML VIAL IV (18:30)
[2018-08-24] MEDS: ONDANSETRON 4 MG INJ IV (18:58)
[2018-08-24] MEDS ORDERED: DIPHENHYDRAMINE 50 MG INJ (19:10)
[2018-08-24] MEDS: DIPHENHYDRAMINE 50 MG INJ IV (19:25)
[2018-08-24 19:32] LABS: ADD UMIC YES; UR ASCORBIC ACID NEGATIVE (NEGATIVE); UR BILIRUBIN (Dip) NEGATIVE (NEGATIVE); UR BLOOD (Dip) 1+ mg/dL (NEGATIVE); UR CLARITY SLIGHTLY CLOUDY (CLEAR); UR COLOR YELLOW (YELLOW); UR GLUCOSE (Dip) NEGATIVE (NEGATIVE); UR HYALINE CAST FEW /HPF (NONE SEEN); UR KETONES (Dip) NEGATIVE (NEGATIVE); UR LEUKOCYTE ESTERASE (Dip) TRACE Leu/ul (NEGATIVE); UR MUCUS FEW /HPF (NONE SEEN); UR NITRITE (Dip) NEGATIVE (NEGATIVE); UR RBC 9 /HPF (0-5); UR SPECIFIC GRAVITY (Dip) 1.016 (1.003-1.030); UR SQUAMOUS EPITHELIAL CELL FEW /HPF (FEW); UR TOTAL PROTEIN (Dip) NEGATIVE (NEGATIVE); UR UROBILINOGEN (Dip) NEGATIVE (NEGATIVE); UR WBC 9 /HPF (0-5)
[2018-08-24] MEDS: CEFAZOLIN 2 GM/50 ML (PMX) 50 ML IVPB (19:37)
[2018-08-24] MEDS: SOD CHLORIDE 0.9% 1,000 ML IV (19:41)
[2018-08-24] MEDS: HYDROmorphONE 1 MG/ML SYG IV (23:56)
[2018-08-25] MEDS: SOD CHLORIDE 0.9% 1,000 ML IV ×2 (02:17→21:23)
[2018-08-25] MEDS: HYDROCODONE/APAP (5/325) TAB PO ×4 (02:18→21:23)
[2018-08-25] MEDS: CEFAZOLIN 2 GM/50 ML (PMX) 50 ML IVPB ×2 (03:02→11:23)
[2018-08-25] MEDS: HYDROmorphONE 1 MG/ML SYG IV ×6 (05:04→23:02)
[2018-08-25] MEDS: ENOXAPARIN 40 MG/0.4 ML SYG SC (09:14)
[2018-08-25 09:23] LABS: ANION GAP 11 (5-13); BLOOD UREA NITROGEN 4 mg/dl (7-20); CALCIUM 8.6 mg/dl (8.4-10.2); CARBON DIOXIDE 22 mmol/L (21-31); CHLORIDE 107 mmol/L (97-110); CREATININE 0.51 mg/dl (0.44-1.00); Estimated GFR > 60 mL/min (>60); GLUCOSE 96 mg/dl (70-220); POTASSIUM 4.2 mmol/L (3.5-5.1); SODIUM 140 mmol/L (135-144)
[2018-08-25] MEDS: DEXTROSE 5%-0.45% NACL 1,000 ML IV ×2 (10:00→20:00)
[2018-08-25 12:02] LABS: HEMATOCRIT 32.8 % (37.0-47.0); HEMOGLOBIN 10.6 g/dl (12.0-16.0); MEAN CORPUSCULAR HEMOGLOBIN 29.3 pg (29.0-33.0); MEAN CORPUSCULAR HGB CONC 32.3 g/dl (32.0-37.0); MEAN CORPUSCULAR VOLUME 90.6 fl (82.0-101.0); MEAN PLATELET VOLUME 9.3 fl (7.4-10.4); PLATELET COUNT 358 10^3/UL (140-415); RED BLOOD COUNT 3.62 10^6/ul (4.20-5.40); RED CELL DISTRIBUTION WIDTH 14.3 % (11.5-14.5)
[2018-08-25 12:02] LABS: WHITE BLOOD COUNT 11.5 10^3/ul (4.8-10.8)
[2018-08-25 12:08] LABS: POSITIVE DIFF @See below
[2018-08-25 13:11] LABS: BASOPHIL # 0.3 10^3/ul (0.0-0.1); EOSINOPHILS # 0.1 10^3/ul (0.0-0.5); EOSINOPHILS % (M) 1 % (0.0-7.0); LYMPHOCYTES # 3.8 10^3/ul (0.8-2.9); LYMPHOCYTES #M 3.7 10^3/ul (0.8-2.9); LYMPHOCYTES % (M) 33 % (15-51); MONOCYTE # 0.7 10^3/ul (0.3-0.9); MONOCYTE #M 0.6 10^3/ul (0.3-0.9); MONOCYTES % (M) 6 % (0-11); SEGMENTED NEUTROPHILS (M) % 57 % (39-77)
[2018-08-25 13:12] LABS: ANISOCYTOSIS 1+ (0-0)
[2018-08-25 13:13] LABS: ADD MAN DIFF? NO
[2018-08-25] MEDS: CEFTRIAXONE 1 GM/50 ML (PMX) 50 ML IVPB (15:51)
[2018-08-26] MEDS: HYDROmorphONE 1 MG/ML SYG IV ×3 (03:06→12:57)
[2018-08-26] MEDS: HYDROCODONE/APAP (5/325) TAB PO ×2 (04:49→11:14)
[2018-08-26] MEDS: DEXTROSE 5%-0.45% NACL 1,000 ML IV ×2 (06:00→16:00)
[2018-08-26] MEDS: SOD CHLORIDE 0.9% 1,000 ML IV ×2 (07:44→08:28)
[2018-08-26] MEDS: ENOXAPARIN 40 MG/0.4 ML SYG SC (09:23)
[2018-08-26 10:33] LABS: ADD MAN DIFF? NO
[2018-08-26 10:35] LABS: BASOPHILS % 0.3 % (0.0-2.0); EOSINOPHILS # 0.1 10^3/ul (0.0-0.5); HEMATOCRIT 34.7 % (37.0-47.0); HEMOGLOBIN 11.1 g/dl (12.0-16.0); LYMPHOCYTES # 1.4 10^3/ul (0.8-2.9); LYMPHOCYTES % 13.4 % (15.0-51.0); MEAN CORPUSCULAR HEMOGLOBIN 28.8 pg (29.0-33.0); MEAN CORPUSCULAR VOLUME 90.1 fl (82.0-101.0); MEAN PLATELET VOLUME 8.5 fl (7.4-10.4); MONOCYTE # 0.8 10^3/ul (0.3-0.9); MONOCYTES % 7.8 % (0.0-11.0); NEUTROPHIL # 7.9 10^3/ul (1.6-7.5); NEUTROPHILS % 77.1 % (39.0-77.0); PLATELET COUNT 369 10^3/UL (140-415); RED BLOOD COUNT 3.85 10^6/ul (4.20-5.40); RED CELL DISTRIBUTION WIDTH 14.1 % (11.5-14.5)
[2018-08-26 10:35] LABS: WHITE BLOOD COUNT 10.2 10^3/ul (4.8-10.8)
[2018-08-26 11:03] LABS: ANION GAP 9 (5-13); BLOOD UREA NITROGEN 2 mg/dl (7-20); CALCIUM 8.9 mg/dl (8.4-10.2); CARBON DIOXIDE 25 mmol/L (21-31); CHLORIDE 106 mmol/L (97-110); CREATININE 0.45 mg/dl (0.44-1.00); Estimated GFR > 60 mL/min (>60); GLUCOSE 152 mg/dl (70-220); POTASSIUM 3.8 mmol/L (3.5-5.1); SODIUM 140 mmol/L (135-144)
[2018-08-26] MEDS: CEFTRIAXONE 1 GM/50 ML (PMX) 50 ML IVPB (15:10)
== END 2018-08-26 16:42 | disposition home health service (06) | DRG 488 ==
LOC: E/R 15:33 → MS1 08-24 20:56
PROVIDERS: Internal Medicine
PROC: 0QSG04Z Reposition Right Tibia with Internal Fixation Device, Open Approach (ICD-10-PCS; principal; 2018-08-24 15:00)
PROC: 0SJC0ZZ Inspection of Right Knee Joint, Open Approach (ICD-10-PCS; 2018-08-24 15:00)
DX: S82.141A Displaced bicondylar fracture of right tibia, initial encounter for closed fracture (principal); N39.0 Urinary tract infection, site not specified; F17.200 Nicotine dependence, unspecified, uncomplicated; J45.909 Unspecified asthma, uncomplicated; B96.20 Unspecified Escherichia coli [E. coli] as the cause of diseases classified elsewhere; W11.XXXA Fall on and from ladder, initial encounter; Y93.E9 Activity, other interior property and clothing maintenance; Y92.89 Other specified places as the place of occurrence of the external cause; Y99.8 Other external cause status; Z85.41 Personal history of malignant neoplasm of cervix uteri
CPT/HCPCS: 70140; 71045; 73560; 73562; 73700; 80048; 80061; 81001; 83036; 83735; 84100; 84439; 84443; 84703; 85025; 85610; 85730; 86850; 86900; 86901; 86920; 87086; 90686; 93005; 96374; 96375; 97116; 97161; 97530; 99285-25